=== PATIENT | male | born 1940 | race Caucasian/White ===

== ENCOUNTER → 2017-01-01 | Outpatient (CLI) | payer MEDICARE, OTHER | END | disposition home or self-care (01) | LOC: GMAL 14:26 | PROVIDERS: ATTEND Family Medicine | DX: R39.15 Urgency of urination (principal); Z12.5 Encounter for screening for malignant neoplasm of prostate | CPT/HCPCS: 87086; G0103 ==

== ENCOUNTER → 2017-01-21 | Outpatient (CLI) | payer MEDICARE, OTHER ==
--- NOTE | 2017-01-21 17:28 | US ---
Procedure: US BLADDER Exam Date: 01/21/2017 Ordering Provider: NICK MCKEON Clinical Indication: R39.15, urgency of urination Comparison: None Technique: Real-time ultrasonography was obtained over the urinary bladder and underwriting account representative images were recorded. Findings: There are no bladder calculi, masses, or focal wall thickening. Bladder prevoid volume 669 mL. Bladder postvoid residual 387 mL. Prostate gland measures 4.0 x 4.1 x 3.6 cm. Impression: 1. Significant postvoid residual. 2. Enlarged prostate gland. Electronically signed by: Idris Hyde MD 01/21/2017 5:27 PM CDT
== END | disposition home or self-care (01) ==
LOC: US 13:18
PROVIDERS: ATTEND Family Medicine
DX: R39.15 Urgency of urination (principal)

== ENCOUNTER → 2019-08-24 | Outpatient (CLI) | payer MEDICARE, OTHER ==
--- NOTE | 2019-08-24 10:08 | CT ---
EXAM DESCRIPTION: Head CLINICAL HISTORY: MEMORY LOSS COMPARISON: None available TECHNIQUE: Noncontrast head CT was performed with routine protocol. FINDINGS: Normal patrick-white matter differentiation. Ventricles and sulci are prominent consistent with age-related cerebral volume loss. Prominent ventricles with mild ventricular asymmetry. No high density hemorrhage, focal edema or shift of the midline. No sulcal effacement. Normal orbital contents. Basilar cisterns appear clear. Intact calvarium with no fracture or lytic lesion. Normal aeration of tympanic cavities and mastoid air cells. No fluid levels in the paranasal sinuses. Skull base appears intact. Symmetrical internal auditory canals. IMPRESSION: No acute intracranial pathologic process. This exam was performed according to our departmental dose-optimization program, which includes automated exposure control, adjustment of the mA and/or kV according to patient size and/or use of iterative reconstruction technique. Total DLP equals 859.97 mGycm. Electronically signed by: Abad Pack MD 08/24/2019 10:07 AM [facility]
== END | disposition home or self-care (01) ==
LOC: CT 09:00
PROVIDERS: ATTEND Family Medicine
DX: R41.81 Age-related cognitive decline (principal)

== ENCOUNTER 2019-10-08 08:50 | Emergency (ER) | payer MEDICARE, OTHER ==
[2019-10-08 09:06] VITALS: TEMP 96.4
--- NOTE | 2019-10-08 09:15 | ED.PDOC ---
History of Present Illness - General Chief Complaint: Respiratory Problem Stated Complaint: shortness of breath Time Seen by Provider: 10/08/19 08:55 Source: patient, RN notes reviewed, Vital Signs reviewed - History of Present Illness Comments: Patient presents for evaluation of not feeling well since 09/30/2019. He notes that he has felt short of breath. He has had myalgias and body aches. He denies fevers, chills, cough, congestion, chest pain, abdominal pain, or diarrhea. He has had urinary frequency with foul smelling urine. Patient denies any dysuria. He denies any recent sick contacts, hospitalizations, or abx. Allergies/Adverse Reactions: Allergies NO KNOWN ALLERGY Allergy (Verified 10/08/19 09:06) Home Medications: Ambulatory Orders Carvedilol 25 mg PO BID 10/08/19 Cephalexin Monohydrate [Keflex] 500 mg PO QID 10 Days #40 cap 10/08/19 Prednisone 50 mg PO DAILY #5 tab 10/08/19 Tamsulosin HCl [Flomax] 0.4 mg PO DAILY 10/08/19 Review of Systems - Review of Systems Constitutional: Denies: chills, fever EENTM: Denies: throat pain Respiratory: States: short of breath Cardiology: Denies: chest pain Gastrointestinal/Abdominal: Denies: abdominal pain Genitourinary: States: frequency Musculoskeletal: Denies: neck pain Skin: Denies: rash Neurological: Denies: headache Hematologic/Lymphatic: Denies: blood clots Past Medical History (General) - Patient Medical History Hx of COPD: Yes Hx Cardiac Disorders: Yes - defibrillator Hx Hypertension: Yes Surgical History: other - Vaccination History Hx Influenza Vaccination: Yes Hx Pneumococcal Vaccination: Yes - Social History Hx Tobacco Use: Yes Hx Alcohol Use: No Hx Substance Use: No Hx Substance Use Treatment: No Family Medical History - Family History Mother Family History: Unknown Physical Exam - Physical Exam General Appearance: Alert, Well Developed, Well Groomed, Well Hydrated, Well Nourished, Other - Appears uncomfortable Eye Exam: bilateral normal ENT Exam: nasal congestion Neck: full range of motion, supple, normal inspection Respiratory: lungs clear, normal breath sounds, no respiratory distress, no accessory muscle use Cardiovascular/Chest: normal peripheral pulses, no edema, no gallop, tachycardia Gastrointestinal/Abdominal: non tender, soft, no organomegaly Extremity: normal range of motion, non-tender Neurologic: alert, normal mood/affect, oriented x 3 Skin Exam: warm/dry Progress - Progress Progress: DDx: Pneumonia, sepsis, UTI, viral URI, ACS, COPD exacerbation Patient presented for evaluation of SOB and dysuria. There was no chest pain. EKG did show t-wave inversion laterally, which seems more chronic. No previous EKG to compare to. Troponin was WNL. There is no pulmonary edema on CXR or leg swelling on exam. CXR was significant for hyperinflation without infiltrate suggestive of COPD exacerabation. There was no leukocytosis or lactic acidosis. Blood cultures were obtained. CMP was significant for pre-renal azotemia and signs of dehydration. UA was consistent with signs of UTI and signs of dehydration. Patient was given a liter of IV fluids for dehydration. He was also given a gram of rocephin for his UTI. Discussed that his SOB seems more consistent with COPD exacerbation. Discussed using nebs scheduled. Likely triggered from viral URI. Discussed will Rx for prednisone. For his UTI, will treat with Keflex. Symptoms do not suggest sepsis. Did offer admission, however patient declined. Will discharge home with plans for outpatient follow-up. 10/08/19 09:35 EKG reviewed. Labs pending. 10/08/19 10:24 Updated patient on lab work, imaging and EKG. Discussed IV rocephin with fluid bolus. Will plan for discharge after Abx. Patient states that he would prefer outpatient treatment. Will start on Prednisone, albuterol nebs scheduled and keflex for his UTI. - Results/Orders Results/Orders: 10/08/19 09:15 EKG STAT 10/08/19 09:45 Urine Culture Stat 10/08/19 10:11 BLOOD CULTURE Stat 10/08/19 10:20 Sodium Chloride 0.9% 1000ML [Ns 1000 ml] 1,000 ml IVS ONCE Laboratory Results WBC 10.1 K/mm3 (4.8-10.8) 10/08/19 09:24 RBC 4.28 M/mm3 (4.70-6.10) L 10/08/19 09:24 Hgb 13.6 gm/dL (14.0-18.0) L 10/08/19 09:24 Hct 41.3 % (42.0-52.0) L 10/08/19 09:24 MCV 96.4 fl (80.0-94.0) H 10/08/19 09:24 MCH 31.7 pg (27.0-31.0) H 10/08/19 09:24 MCHC 32.9 g/dL (33.0-37.0) L 10/08/19 09:24 RDW 14.0 % (11.5-14.5) 10/08/19 09:24 Plt Count 116 K/mm3 (130-400) L 10/08/19 09:24 MPV 9.1 fl (7.40-10.4) 10/08/19 09:24 Absolute Neuts (auto) 7.90 K/uL (1.8-6.8) H 10/08/19 09:24 Absolute Lymphs (auto) 1.10 K/uL (1.0-3.4) 10/08/19 09:24 Absolute Monos (auto) 1.10 K/uL (0.2-0.8) H 10/08/19 09:24 Absolute Eos (auto) 0.00 K/uL (0.0-0.4) 10/08/19 09:24 Absolute Basos (auto) 0.00 K/uL (0.0-0.1) 10/08/19 09:24 Neutrophils % 78.2 % (42.0-78.0) H 10/08/19 09:24 Lymphocytes % 10.7 % (20.0-50.0) L 10/08/19 09:24 Monocytes % 10.7 % (2.0-9.0) H 10/08/19 09:24 Eosinophils % 0.1 % (1.0-5.0) L 10/08/19 09:24 Basophils % 0.3 % (0.0-2.0) 10/08/19 09:24 Sodium 139 mmol/L (135-145) 10/08/19 09:24 Potassium 4.1 mmol/L (3.6-5.0) 10/08/19 09:24 Chloride 95 mmol/L (101-111) L 10/08/19 09:24 Carbon Dioxide 33 mmol/L (21-31) H 10/08/19 09:24 Anion Gap 15.1 (12-18) 10/08/19 09:24 BUN 30 mg/dL (7-18) H 10/08/19 09:24 Creatinine 0.74 mg/dL (0.6-1.3) 10/08/19 09:24 BUN/Creatinine Ratio 40.5 (10-20) H 10/08/19 09:24 Random Glucose 115 mg/dL (70-105) H 10/08/19 09:24 Serum Osmolality 284.6 mOsm/L (275-295) 10/08/19 09:24 Lactic Acid 1.4 mmol/L (0.5-2.2) 10/08/19 09:24 Calcium 9.3 mg/dL (8.4-10.2) 10/08/19 09:24 Total Bilirubin 0.9 mg/dL (0.2-1.0) 10/08/19 09:24 AST 16 IU/L (10-42) 10/08/19 09:24 ALT 11 IU/L (10-60) 10/08/19 09:24 Alkaline Phosphatase 52 IU/L (42-121) 10/08/19 09:24 Troponin I 0.02 ng/mL (0.01-0.05) 10/08/19 09:24 Serum Total Protein 6.7 gm/dL (6.4-8.2) 10/08/19 09:24 Albumin 3.6 g/dl (3.2-5.5) 10/08/19 09:24 Globulin 3.1 gm/dL (2.3-3.5) 10/08/19 09:24 Albumin/Globulin Ratio 1.2 (1.1-1.9) 10/08/19 09:24 Urine Color Yellow (Yellow) 10/08/19 09:45 Urine Appearance Cloudy (Clear) 10/08/19 09:45 Urine pH 6.5 (4.5-7.8) 10/08/19 09:45 Ur Specific [place] 1.025 (1.005-1.030) 10/08/19 09:45 Urine Protein Trace mg/dL 10/08/19 09:45 Urine Glucose (UA) Negative mg/dL (Negative) 10/08/19 09:45 Urine Ketones 15 mg/dL (NEGATIVE) H 10/08/19 09:45 Urine Blood Small (Negative) H 10/08/19 09:45 Urine Nitrite Negative 10/08/19 09:45 Urine Bilirubin Small (NEGATIVE) H 10/08/19 09:45 Urine Urobilinogen 2.0 mg/dL (0.2-1.0) H 10/08/19 09:45 Ur Leukocyte Esterase Trace (Negative) H 10/08/19 09:45 Urine RBC 1-3 /hpf 10/08/19 09:45 Urine WBC 10-20 /hpf H 10/08/19 09:45 Ur Epithelial Cells 0-1 /hpf 10/08/19 09:45 Urine Bacteria 4+ H 10/08/19 09:45 - EKG/XRAY/CT EKG: Sinus, Tachy Comments: Sinus tachycardia rate of 113bpm. T wave inversion V4-V6. No ST changes. XRAY: chest - Hyperinflation. No focal infiltrate. Departure - Departure Clinical Impression: COPD exacerbation, UTI (urinary tract infection) Time of Disposition: 10:26 Disposition: Discharge to Home or Self Care Condition: Good Departure Forms: ED Discharge - Pt. Copy, Patient Portal Self Enrollment Instructions: Urinary Tract Infections in Adults, Exacerbation of COPD Referrals: Robert Clements III, MD [Primary Care Provider] - 1-2 Weeks Prescriptions: Cephalexin Monohydrate [Keflex] 500 mg PO QID 10 Days #40 cap Prednisone 50 mg PO DAILY #5 tab Home Medications: Ambulatory Orders Carvedilol 25 mg PO BID 10/08/19 Cephalexin Monohydrate [Keflex] 500 mg PO QID 10 Days #40 cap 10/08/19 Prednisone 50 mg PO DAILY #5 tab 10/08/19 Tamsulosin HCl [Flomax] 0.4 mg PO DAILY 10/08/19 Comments: Ulisses Emerson D.O. [facility] #[id number]
--- NOTE | 2019-10-08 09:39 | RAD ---
EXAM DESCRIPTION: Chest,2 Views CLINICAL HISTORY: SOB COMPARISON: None FINDINGS: Two-view chest x-ray shows cardiomediastinal silhouette and pulmonary vasculature to be within normal limits. The lungs are hyperinflated. Pulmonary lucency seen in the left lung greater than right. Left subclavian dual-lead transvenous cardiac pacemaker defibrillator seen in good positioning. No acute infiltrate or consolidation is seen.. Bilateral nipple shadows are seen. Mild blunting of the costophrenic angles.. Mild disc degenerative changes of the spine. IMPRESSION: No radiographic evidence of acute cardiopulmonary disease in this moderately emphysematous, senescent chest. Blunting of the costophrenic angles likely chronic secondary to flattening of the hemidiaphragms from lung hyperinflation.. Electronically signed by: Homero Navarro MD 10/08/2019 9:37 AM [facility]
[2019-10-08] MEDS ORDERED: cefTRIAXone SODIUM 1 GM VIAL ONE (10:22)
[2019-10-08] MEDS ORDERED: SODIUM CHL 0.9% 50ML MIN-BAG+ 50 ML IVPB ONE (10:23)
[2019-10-08] MEDS: SODIUM CHLORIDE 0.9% 1000ML 1,000 ML IVS ONE (10:27)
[2019-10-08] MEDS: cefTRIAXone SODIUM 1 GM in SODIUM CHL 0.9% 50ML MIN-BAG+ 50 ML IVPB ONE (10:27)
[2019-10-08 11:38] VITALS: BP 113/78; O2SAT 97
== END 2019-10-08 11:18 | disposition home or self-care (01) ==
LOC: ER 08:50
DX: J44.1 Chronic obstructive pulmonary disease with (acute) exacerbation (principal); N39.0 Urinary tract infection, site not specified; R00.0 Tachycardia, unspecified; I10 Essential (primary) hypertension; Z95.0 Presence of cardiac pacemaker; Z87.891 Personal history of nicotine dependence; Z79.899 Other long term (current) drug therapy
CPT/HCPCS: 36415; 71046; 80053; 81001; 83605; 84484; 85025; 87040; 87077; 87086; 93005; J0696; J7030; J7050

== ENCOUNTER 2020-02-07 04:54 | Emergency (ER) | payer MEDICARE, OTHER ==
[2020-02-07] MEDS ORDERED: methylPREDNISolone SODIUM SUC 125 MG/2 ML VIAL IV ONE (05:15)
[2020-02-07] MEDS ORDERED: IPRATROPIUM BROMIDE NEBS 0.5 MG/2.5 ML VIAL NEB ONE (05:15)
[2020-02-07] MEDS ORDERED: ALBUTEROL SULFATE NEBS (ED DISPENSE) 2.5 MG/3 ML VIAL NEB PRN (05:15)
[2020-02-07] MEDS ORDERED: cefTRIAXone SODIUM 1 GM in SODIUM CHL 0.9% 50ML MIN-BAG+ 50 ML IVPB ONE (05:15)
[2020-02-07] MEDS ORDERED: IPRATROPIUM/ALBUTEROL 3 ML VIAL NEB ONE (05:15)
--- NOTE | 2020-02-07 05:19 | ED.PDOC ---
History of Present Illness - General Chief Complaint: Respiratory Problem Time Seen by Provider: 02/07/20 05:14 Additional Information: Patient is a 79-year-old male who presents to the ED with chief complaint of shortness of breath. Patient has chronic shortness of breath due to COPD and indicates his symptoms are consistent with COPD exacerbation. Patient says that he became more short of breath this evening at 3 AM, unimproved with nebulizer treatment. Patient denies nausea, vomiting, fever, chills. Patient is a smoker. - History of Present Illness Allergies/Adverse Reactions: Allergies NO KNOWN ALLERGY Allergy (Verified 10/08/19 09:06) Home Medications: Ambulatory Orders Azithromycin [Zithromax Z-Roge] 250 mg PO DAILY #6 tab 02/07/20 Lorazepam 0.5 mg PO BID 02/07/20 Morphine Sulfate Cr 25 mg PO Q12HR 02/07/20 Morphine Sulfate [Morphine Sulfate ER] 5 mg PO Q4HR PRN 02/07/20 Prednisone 20 mg PO BID 02/07/20 Prednisone 40 mg PO DAILY #10 tab 02/07/20 Review of Systems - Review of Systems Constitutional: States: no symptoms reported. Denies: chills, fever Respiratory: States: cough, short of breath, wheezing Cardiology: States: no symptoms reported. Denies: chest pain, palpitations Gastrointestinal/Abdominal: States: no symptoms reported. Denies: abdominal pain, nausea, vomiting Musculoskeletal: States: no symptoms reported Skin: States: no symptoms reported. Denies: rash All other Systems: Reviewed and Negative Past Medical History (General) - Patient Medical History Hx of COPD: Yes Hx Cardiac Disorders: Yes - defibrillator Hx Hypertension: Yes - Vaccination History Hx Tetanus, Diphtheria Vaccination: Yes Hx Influenza Vaccination: Yes Hx Pneumococcal Vaccination: Yes - Social History Hx Tobacco Use: Yes Hx Alcohol Use: No Hx Substance Use: No Hx Substance Use Treatment: No Family Medical History - Family History Mother Family History: Unknown Physical Exam - Physical Exam General Appearance: Alert, Emaciated, Frail, Obvious distress - Mild, Other - Chronically ill-appearing. ENT Exam: normal ENT inspection Neck: supple, normal inspection Respiratory: respiratory distress - Mild, wheezing, other - Negative rales or rhonchi. Cardiovascular/Chest: regular rate, rhythm, no edema, no gallop, no JVD, no murmur Gastrointestinal/Abdominal: normal bowel sounds, non tender, soft, no organomegaly Extremity: normal range of motion, non-tender, normal inspection, no pedal edema Neurologic: ice carver II-XII nml as tested, no motor/sensory deficits, alert, normal mood/affect, oriented x 3 Skin Exam: normal color, warm/dry Progress - Progress Progress: 02/07/20 05:22 Differential diagnosis includes but is not limited to pneumonia, COPD, CHF, ACS 02/07/20 06:39 Patient reassessed and is feeling much better at this time following breathing treatments, steroids and antibiotics. Patient is on hospice and I have discussed with him his care wishes. Patient was offered admission but because he is feeling better patient wishes to go home with a prescription for steroids and antibiotics and he will continue with his albuterol and follow-up with his PCP. This is a reasonable plan. Vital signs stable, patient is NAD and looks clinically well and I believe is safe for discharge with outpatient follow-up. Follow-up instructions, discharge instructions and return to ED precautions discussed with patient. Patient voices understanding and willingness to comply with instructions. All laboratory and radiographic results have been discussed with the patient, and all questions answered. Patient is happy with plan. - EKG/XRAY/CT Comments: ,EKG: Normal sinus rhythm, rate of 91, normal axis. Occasional PVC. T wav Departure - Departure Clinical Impression: COPD exacerbation Time of Disposition: 06:42 Disposition: Discharge to Home or Self Care Condition: Fair Departure Forms: ED Discharge - Pt. Copy, Patient Portal Self Enrollment Instructions: Exacerbation of COPD (DC) Referrals: Robert Clements III, MD [Primary Care Provider] - 1-5 Days Prescriptions: Azithromycin [Zithromax Z-Roge] 250 mg PO DAILY #6 tab Prednisone 40 mg PO DAILY #10 tab Home Medications: Ambulatory Orders Azithromycin [Zithromax Z-Roge] 250 mg PO DAILY #6 tab 02/07/20 Lorazepam 0.5 mg PO BID 02/07/20 Morphine Sulfate Cr 25 mg PO Q12HR 02/07/20 Morphine Sulfate [Morphine Sulfate ER] 5 mg PO Q4HR PRN 02/07/20 Prednisone 20 mg PO BID 02/07/20 Prednisone 40 mg PO DAILY #10 tab 02/07/20
[2020-02-07] MEDS ORDERED: SODIUM CHL 0.9% 50ML MIN-BAG+ 50 ML IVPB ONE (05:42)
[2020-02-07] MEDS ORDERED: cefTRIAXone SODIUM 1 GM VIAL ONE (05:42)
--- NOTE | 2020-02-07 06:03 | RAD ---
EXAM DESCRIPTION: Chest,1 View CLINICAL HISTORY: shortness of breath COMPARISON: 10/08/2019 FINDINGS: Single frontal view of the chest. Cardiomediastinal silhouette: Left-sided pacemaker. Atherosclerotic calcification of the thoracic aorta. Lungs: Hyperinflation. No consolidation, pneumothorax, or pleural effusion. Leads overlie the chest. Bones: Degenerative change of the spine. Upper abdomen: No abnormality identified. IMPRESSION: 1. No acute pneumonic process identified. Obstructive lung disease. Electronically signed by: Danny Moran 02/07/2020 5:59 AM CDT
[2020-02-07] MEDS ORDERED: ONDANSETRON INJ 4 MG/2 ML VIAL IV ONE (06:04)
[2020-02-07] MEDS ORDERED: MORPHINE SULFATE INJ 10 MG/ML VIAL IV ONE (06:04)
[2020-02-07 06:53] VITALS: BP 102/70; TEMP 97.9; O2SAT 89
== END 2020-02-07 06:48 | disposition home or self-care (01) ==
LOC: ER 04:54
DX: J44.1 Chronic obstructive pulmonary disease with (acute) exacerbation (principal); I10 Essential (primary) hypertension; Z95.0 Presence of cardiac pacemaker; F17.200 Nicotine dependence, unspecified, uncomplicated